=== PATIENT | male | born 1990 | race Caucasian/White ===

== ENCOUNTER → 2024-04-07 11:51 | Outpatient (CLI) | payer OTHER, SELFPAY ==
--- NOTE | 2024-04-07 11:54 | DI.RAD.S_ITS ---
PROCEDURE: XR LUMBAR SPINE 2-3V INDICATIONS: CHEST PAIN TECHNIQUE: 3 views of the lumbar spine were acquired. COMPARISON: None. FINDINGS: Lumbar spine curvature and alignment: Normal. Bones: There are no osseous abnormalities. Disc spaces: Normal in height without significant degeneration. Intervertebral foramen: Grossly normal in width. Soft tissues: No soft tissue swelling, calcification or mass. IMPRESSION: Normal lumbar spine Dictated by: Freddy Neal M.D. on 04/08/2024 at 10:44 Approved by: Freddy Neal M.D. on 04/08/2024 at 10:45
--- NOTE | 2024-04-07 11:54 | DI.RAD.S_ITS ---
PROCEDURE: XR CHEST 2V INDICATIONS: CHEST PAIN TECHNIQUE: 2 views of the chest were acquired. COMPARISON: None. FINDINGS: Heart, mediastinum and pulmonary vascular: Heart is normal in size and configuration. Mediastinum is unremarkable. Pulmonary vascular is normal. Lungs: Clear Pleural spaces: Normal-no effusions or pneumothorax. Bones and soft tissues: Normal IMPRESSION: Normal chest. Dictated by: Freddy Neal M.D. on 04/08/2024 at 10:49 Approved by: Freddy Neal M.D. on 04/08/2024 at 10:49
== END ==
PROVIDERS: Referring Provider Chiropractor; Visit Provider Chiropractor
DX: R07.1 Chest pain on breathing (principal); M54.9 Dorsalgia, unspecified
CPT/HCPCS: 71046; 72100; 94060